=== PATIENT | female | born 1995 | race Hispanic/Latino ===

== ENCOUNTER 2018-10-20 07:05 | Emergency (ER) | payer MEDICAID, OTHER ==
[~2018-10-20 07:05] MED LIST: IBUP-2070 PO; IRON-10 PO; PREN1TAB89 PO
== END 2018-10-20 07:42 ==
LOC: EDH 07:05 → EEVIPCON 07:05 → EDH 07:42
DX: F10.99 Alcohol use, unspecified with unspecified alcohol-induced disorder (principal); Y90.9 Presence of alcohol in blood, level not specified

== ENCOUNTER 2020-10-22 22:24 | Inpatient (IN) | payer MEDICAID ==
[~2020-10-22] VITALS: Ht 149.9 cm; Wt 84.8 kg
[2020-10-22] MEDS ORDERED: PROMETHAZINE HCL 25 MG/ML 1ML AMPULE IM PRN (23:00)
[2020-10-22] MEDS ORDERED: ROPIVACAINE 0.2% 100ML VIAL 100 ML EP SCH (23:00)
[2020-10-22] MEDS ORDERED: LACTATED RINGERS 1000ML 1,000 ML IV PRN (23:00)
[2020-10-22] MEDS ORDERED: NALOXONE HCL 0.4 MG/1 ML ML IV PRN (23:00)
[2020-10-22] MEDS ORDERED: LACTATED RINGERS 500 ML 500 ML IV PRN (23:00)
[2020-10-22] MEDS ORDERED: EPHEDRINE SULFATE 50 MG/ML AMPULE IVP PRN (23:00)
[2020-10-22] MEDS ORDERED: MEPERIDINE-PF 50 MG/ML SYG IVP PRN (23:00)
[2020-10-22 23:24] LABS: APPEARANCE,URINE Cloudy (CLEAR); BILIRUBIN,URINE Negative (NEGATIVE); COLOR,URINE Dark Yellow (YELLOW); GLUCOSE, URINE (UA) Negative (NEGATIVE); KETONES,URINE Trace mg/dL (NEGATIVE); LEUKOCYTE ESTERASE ,URINE Moderate (NEGATIVE); NITRATE,URINE Negative (NEGATIVE); OCCULT BLOOD,URINE Negative (NEGATIVE); PH,URINE 6.5 (5.0-8.0); PROTEIN,URINE Trace mg/dL (NEGATIVE)
[2020-10-22 23:34] LABS: RBC,URINE 0-1 /HPF (0-1)
[2020-10-22 23:35] LABS: BACTERIA,URINE Few /HPF (None Seen)
[2020-10-23] MEDS ORDERED: OXYTOCIN-LR 20 UNITS/1000 ML 1,000 ML IV SCH (04:00)
[2020-10-23 04:29] VITALS: BP 128/71
[2020-10-23] MEDS ORDERED: PREN1TAB80 PO (04:36)
[2020-10-23] MEDS ORDERED: FERR-82 PO (04:36)
[2020-10-23] MEDS ORDERED: LIDOCAINE HCL 1% 20 ML VIAL ONE (13:23)
[2020-10-23] MEDS ORDERED: METHYLERGONOVINE MALEATE 0.2 MG/1 ML ML ONE (14:25)
[2020-10-23] MEDS ORDERED: WITCH HAZEL 1 PAD TP PRN (15:30)
[2020-10-23] MEDS ORDERED: BENZOCAINE/LANOLIN/ALOE VERA 60 ML AEROSOL TP PRN (15:30)
[2020-10-23] MEDS ORDERED: MEASLES/MUMPS/RUBELLA VACCINE, LIVE 0.5 ML/VIAL SQ PRN (15:30)
[2020-10-23] MEDS ORDERED: ACETAMINOPHEN WITH CODEINE 1 TAB TAB PO PRN (15:30)
[2020-10-23] MEDS ORDERED: LANOLIN 30GM OINTMENT TP PRN (15:30)
[2020-10-23] MEDS ORDERED: ACETAMINOPHEN 325 MG TAB PO PRN (15:30)
[2020-10-23] MEDS: OXYTOCIN-LR 20 UNITS/1000 ML 1,000 ML IV SCH (15:30)
[2020-10-23] MEDS ORDERED: DIPH,PERTUSS(ACELL),TET VAC/PF 0.5 ML VIAL IM PRN (15:30)
[2020-10-23] MEDS: IBUPROFEN 600 MG TABLET PO PRN (19:30)
[2020-10-23 19:38] VITALS: BP 138/86
[2020-10-23] MEDS: DOCUSATE SODIUM 100 MG CAP PO SCH (20:29)
[2020-10-23 21:07] VITALS: BP 140/98
[2020-10-23 23:09] VITALS: BP 116/60
[2020-10-24] MEDS: IBUPROFEN 600 MG TABLET PO PRN ×2 (01:50→09:13)
[2020-10-24 03:25] VITALS: BP 126/67
[2020-10-24] MEDS: OXYTOCIN-LR 20 UNITS/1000 ML 1,000 ML IV SCH (05:02)
[2020-10-24 06:36] LABS: HEMATOCRIT 32.6 % (36-48); MEAN CORPUSCULAR HEMOGLOBIN 27.8 pg (27.0-33.0); MEAN CORPUSCULAR HGB CONC 32.8 g/dL (32.0-36.0); MEAN CORPUSCULAR VOLUME 84.7 fL (79-99); RED BLOOD CELL COUNT(AUTO) 3.85 MIL/uL (4.00-5.50); RED CELL DISTRIBUTION WIDTH 13.9 % (11.0-15.5); WHITE BLOOD COUNT (AUTO) 12.2 K/uL (4.8-10.8)
[2020-10-24 07:22] VITALS: BP 129/86
[2020-10-24] MEDS: DOCUSATE SODIUM 100 MG CAP PO SCH (09:13)
[2020-10-24 12:15] VITALS: BP 130/82
== END 2020-10-24 16:25 | disposition home or self-care (01) | DRG 560 ==
LOC: LDH 22:24 → WSH 10-23 21:00
PROVIDERS: ADMIT Obstetrics & Gynecology; ATTEND Obstetrics & Gynecology
PROC: 10E0XZZ Delivery of Products of Conception, External Approach (ICD-10-PCS; principal; 2020-10-23)
PROC: 0KQM0ZZ Repair Perineum Muscle, Open Approach (ICD-10-PCS; 2020-10-23)
PROC: 3E033VJ Introduction of Other Hormone into Peripheral Vein, Percutaneous Approach (ICD-10-PCS; 2020-10-23)
PROC: 10907ZC Drainage of Amniotic Fluid, Therapeutic from Products of Conception, Via Natural or Artificial Opening (ICD-10-PCS; 2020-10-23)
PROC: 3E0234Z Introduction of Serum, Toxoid and Vaccine into Muscle, Percutaneous Approach (ICD-10-PCS; 2020-10-23)
PROC: 3E0134Z Introduction of Serum, Toxoid and Vaccine into Subcutaneous Tissue, Percutaneous Approach (ICD-10-PCS; 2020-10-23)
DX: O24.420 Gestational diabetes mellitus in childbirth, diet controlled (principal); E66.9 Obesity, unspecified; O99.214 Obesity complicating childbirth; O69.1XX0 Labor and delivery complicated by cord around neck, with compression, not applicable or unspecified; O70.1 Second degree perineal laceration during delivery; Z3A.40 40 weeks gestation of pregnancy; Z37.0 Single live birth; Z23 Encounter for immunization; Z86.16 Personal history of COVID-19
CPT/HCPCS: 36415; 81001; 85027; 86592; 86850; 86900; 86901; 87088; 87340; 90715; A4351; G0378; J2175; J2210; J2550; J2590; J7120